=== PATIENT | female | born 1960 | race American Indian/Alaskan Native ===

== ENCOUNTER 2019-03-16 14:00 | Outpatient (CLI) | payer OTHER ==
--- NOTE | 2019-03-17 10:06 | Magnetic Resonance Report ---
Bilateral breast MRI with and without contrast. History: PERSONAL HX LF BREAST CA, history of left mastectomy with reconstruction Procedure: Axial T1 and T2-weighted fat-sat images were obtained precontrast. 19 cc ProHance was inj ected intravenously and serial axial T1-weighted images with fat saturation were obtained postcontras t. 3-D MIP projections, Kinetic analysis and subtraction imaging was utilized to evaluate. A [employer] d 8-channel breast coil was utilized for image acquisition. Comparison: Right mammogram 01/09/2019 Findings: Background level of enhancement is minimal. No suspicious axillary or clavicular nodes are identified. No abnormal bone marrow signal is seen. No significant chest wall enhancement is noted. Left breast: Reconstructed changes are noted. No suspicious lesions are seen. Right breast: No suspicious lesions are seen. Impression: No suspicious lesions are seen Signer Name: Luis Longoria MD Signed: 03/17/2019 8:35 AM Workstation Name: [id number]
== END 2019-03-16 14:01 | disposition home or self-care (01) ==
LOC: SPVIMAG 14:00
PROVIDERS: ATTEND Surgery
DX: Z85.3 Personal history of malignant neoplasm of breast (principal); I10 Essential (primary) hypertension; E66.9 Obesity, unspecified; E11.9 Type 2 diabetes mellitus without complications
CPT/HCPCS: A9577; C8908; 77049

== ENCOUNTER 2019-08-28 14:41 | Outpatient (CLI) | payer OTHER ==
--- NOTE | 2019-08-28 15:24 | XRay Report ---
LEFT SHOULDER 3 VIEWS INDICATION: M25.512 PAIN IN LEFT SHOULDER.M75.42Impingement syndrome of left. COMPARISON: None. IMPRESSION: No acute osseous or soft tissue abnormality. No significant DJD. Signer Name: Jaren Walden Jr, MD Signed: 08/28/2019 3:19 PM Workstation Name: [id number]
== END 2019-08-28 14:42 | disposition home or self-care (01) ==
LOC: XRAY 14:41
PROVIDERS: ATTEND Orthopaedic Surgery
DX: M25.512 Pain in left shoulder (principal); M75.42 Impingement syndrome of left shoulder

== ENCOUNTER 2020-03-15 10:31 | Outpatient (CLI) | payer OTHER ==
--- NOTE | 2020-03-15 13:33 | Magnetic Resonance Report ---
BILATERAL BREAST MRI WITH AND WITHOUT CONTRAST HISTORY: Status post left breast mastectomy with reconstruction. COMPARISON: 01/11/2020 TECHNIQUE: Multiplanar multisequence MR images were obtained of both breasts for and after the intrav enous administration of contrast.. The evaluation was reviewed using [employer] computer-aided detection software. FINDINGS: There is minimal background parenchymal enhancement bilaterally. LEFT BREAST: Stable reconstruction changes status post mastectomy. No enhancing mass, dominant focus, or other abnormal enhancement is identified. RIGHT BREAST: No enhancing mass, dominant focus, or other abnormal enhancement is identified. No abnormal axillary or internal mammary lymph nodes. IMPRESSION: No MRI evidence of malignancy. If the clinical examination remains stable, the patient should continu e an annual conventional mammographic evaluation schedule. Recommend future MRI evaluations at inter vals appropriate for her risk factors. BIRADS 2: Benign A normal MRI does not exclude the presence of some forms of breast malignancy as literature reports s uggest that some forms of ductal carcinoma in situ or lobular carcinoma, particularly, may not be det ected on MRI. The sensitivity and specificity of MRI for cancers under 5 mm may be reduced. MRI does not replace the recommendation for annual conventional mammographic evaluation and should be used as an adjunct to mammography and physical examination as necessary. Signer Name: Saul Nelson MD Signed: 03/15/2020 1:28 PM Workstation Name: [id number]
== END 2020-03-15 10:32 | disposition home or self-care (01) ==
LOC: SPVIMAG 10:31
PROVIDERS: ATTEND Surgery
DX: C50.412 Malignant neoplasm of upper-outer quadrant of left female breast (principal)
CPT/HCPCS: A9577; C8908; 77049

== ENCOUNTER 2021-01-11 13:08 | Outpatient (CLI) | payer OTHER | END 2021-01-11 13:09 | disposition home or self-care (01) | LOC: SPVWC 13:08 | PROVIDERS: ATTEND Surgery | DX: Z12.31 Encounter for screening mammogram for malignant neoplasm of breast (principal); N64.89 Other specified disorders of breast ==